=== PATIENT | male | born 1950 | race Caucasian/White ===

== ENCOUNTER 2018-11-14 18:03 | Observation (INO) | payer MEDICARE ==
[~2018-11-14] VITALS: Ht 182.9 cm; Wt 89.1 kg
[2018-11-14] VITALS (323 sets, daily range): BP systolic 112–141; BP diastolic 73–96; PULSE 74–110; TEMP 98.3–98.4; O2SAT 90–97
--- NOTE | 2018-11-14 17:35 | NUR ---
PATIENT ARRIVED TO ICU ROOM 2 VIA STRETCHER WITH [facility]. INT TO RIGHT AC NOTED. PATIENT WAS ASSISTED WITH CHANGING INTO A GOWN. HE WAS PLACED ON THE INSTRUCTIONAL DESIGN MANAGER. VSS AT THIS TIME. HE IS ON 2L NASAL CANNULA.
--- NOTE | 2018-11-14 19:00 | NUR ---
DR. BERGER NOTIFIED OF PATIENT'S HEART RATE BEING ELEVATED AROUND 140'S TO 160'S. NO ORDERS HAVE BEEN PUT IN. DR. BERGER SAID HE WOULD GET TO PUTTING IN ORDERS IN ABOUT 30 MINUTES. HE DID GIVE ME AN ORDER FOR IV CARDIZEM TO START IF NEEDED.
--- NOTE | 2018-11-14 19:34 | NUR ---
REPORT GIVEN TO CHELLE GARCIA.
--- NOTE | 2018-11-14 21:30 | NUR ---
1929 - PT CONVERTED TO SINUS RHYTHM ON HIS OWN, EKG ORDERED PER PROTOCOL. 2039- PT NOTED TO BE STAYING AT SINUS RHYTHM AND HR BETWEEN 70S-80S. 2109 - DR. AB DE LA PAZOFIED OF PT'S CONVERSION, VERBALIZED HE'LL PUT ORDERS IN.
[2018-11-14 22:49] LABS: BASO # 0.1 (0.0-0.2); BASO % 1.5 % (0.0-2.0); EOS # 0.3 (0.0-0.7); EOS % 3.3 % (0-4.0); GRAN # 5.7 (1.4-6.5); GRAN % 64.2 % (42.2-75.2); HEMATOCRIT 48.7 % (42.0-52.0); HEMOGLOBIN 16.3 g/dl (13.5-18.0); LYMPH # 1.6 (1.2-3.4); LYMPH % 18.4 % (20.0-51.0); MEAN CELL VOLUME 90 fl (80.0-100.0); MEAN CORPUSCULAR HEMOGLOBIN 30 pg (27.0-31.0); MEAN CORPUSCULAR HGB CONC 34 g/dl (33.0-37.0); MEAN PLATELET VOLUME 9.4 fl (7.4-10.4); MONO % 11.2 % (1.7-9.3); PLATELET COUNT 330 K/mm3 (130-400); RED BLOOD COUNT 5.39 M/mm3 (4.20-5.60); REDCELL DISTRIBUTION WIDTH-CV 12.9 % (11.5-14.5)
[2018-11-14 22:58] LABS: ANION GAP 9 mmol/L (7-16); BLOOD UREA NITROGEN 17 mg/dL (9-20); CALCIUM 9.5 mg/dL (8.4-10.2); CARBON DIOXIDE 26 mmol/L (22-30); CHLORIDE 104 mmol/L (98-107); CREATININE, serum 0.95 mg/dL (0.66-1.25); GLUCOSE 112 mg/dL (74-106); POTASSIUM 4.2 mmol/L (3.4-5.0); SODIUM 138 mmol/L (137-145)
[2018-11-14 23:14] LABS: TROPONIN-I < 0.012 ng/mL (0.000-0.035)
[2018-11-15] VITALS (906 sets, daily range): BP systolic 101–123; BP diastolic 68–99; PULSE 62–79; TEMP 98–98.7; O2SAT 76–100
--- NOTE | 2018-11-15 07:30 | NUR ---
Received bedside report from CHELLE Dougherty. PAtient was awake and resting in bed.
--- NOTE | 2018-11-15 08:00 | NUR ---
Patient resting in bed. Does not complain of pain at this time.
--- NOTE | 2018-11-15 09:02 | NUR ---
NCM, MODESTA and MODESTA student met with patient to present RAINES form. NCM verbally explained what observation status is and why patient was being changed. Patient was agreeable and signed both forms. Copy presented to patient and original placed in chart. MODESTA and MODESTA student discussed discharge planning with patient. He lives alone in [place]. Patient reports he goes to [facility] when he needs to see a dr but doesn't know who there is his PCP and [facility] Patients Daughter Beba is his contact but he does not have a DPOA in place. Patient plans to discharge home, possibly today. No other needs identified.
[2018-11-15] MEDS ORDERED: TOPROL XL 25MG25 MG PO (15:43)
[2018-11-15] MEDS ORDERED: ASPIRIN E.C. 8181 MG PO (15:43)
--- NOTE | 2018-11-15 17:45 | NUR ---
Discharged patient home with son. Patient left via wheelchair with all belongings.
== END 2018-11-15 17:40 | disposition home or self-care (01) ==
LOC: ICU 18:03
PROVIDERS: ADMIT Internal Medicine Interventional Cardiology
DX: I48.0 Paroxysmal atrial fibrillation (principal); R07.9 Chest pain, unspecified; Z87.891 Personal history of nicotine dependence
CPT/HCPCS: G0378; G0379